=== PATIENT | female | born 1955 | race Caucasian/White ===

== ENCOUNTER 2017-01-15 17:20 | Emergency (ER) | payer BC ==
[2017-01-15 17:57] VITALS: BP 134/88
--- NOTE | 2017-01-15 19:30 | RAD ---
INDICATION: "Twisting" injury 11 days earlier COMPARISON: None. TECHNIQUE: 2 views of the right foot and 3 views of the right ankle were obtained. FINDINGS: There is a minimally displaced fracture through the distal right fibular metaphysis. The ankle mortise exhibits a small amount of widening at the fibular talar joint. The remaining visualized bones are well-corticated and appropriately aligned. IMPRESSION: MINIMALLY DISPLACED FRACTURE THROUGH THE DISTAL RIGHT FIBULA WITH A SMALL DEGREE OF WIDENING OF THE LATERAL ANKLE MORTISE.
--- NOTE | 2017-01-15 20:14 | UC ---
Lower Extremity/Ankle HPI - HPI Summary HPI Summary: ELEVEN DAYS AGO FELL ON KITCHEN FLOOR, PAIN IN ANKLE, NOT HEALING SINCE FALL - History of Current Complaint Chief Complaint: UCLowerExtremity Stated Complaint: ANKLE INJURY Time Seen by Provider: 01/15/17 17:55 Hx Obtained From: Patient Onset/Duration: Sudden Onset, Lasting Weeks, Still Present Severity Initially: Moderate Severity Currently: Moderate Aggravating Factor(s): Standing, Ambulation Alleviating Factor(s): Rest, Elevation, Ice Able to Bear Weight: Yes - WITH PAIN - Risk Factors Gout Risk Factors: Negative DVT Risk Factors: Negative Septic Arthritis Risk Factor: Negative - Allergies/Home Medications Allergies/Adverse Reactions: Allergies Allergy/AdvReac Type Severity Reaction Status Date / Time No Known Allergies Allergy Verified 01/15/17 17:57 Home Medications: Home Medications NK [No Home Medications Reported] 01/15/17 [History Confirmed 01/15/17] PMH/Surg Hx/FS Hx/Imm Hx Previously Healthy: Yes Endocrine History Of: Denies: Diabetes, Thyroid Disease Cardiovascular History Of: Denies: Cardiac Disorders, Hypertension Respiratory History Of: Denies: COPD, Asthma GI/ History Of: Denies: Ulcer - Surgical History Surgical History: None - Family History Known Family History: Negative: Other - NO JOINT LAXITY - Social History Alcohol Use: Occasionally Substance Use Type: None Smoking Status (MU): Former Smoker Review of Systems Constitutional: Negative Skin: Negative Eyes: Negative ENT: Negative Respiratory: Negative Cardiovascular: Negative Gastrointestinal: Negative Genitourinary: Negative Motor: Negative Neurovascular: Negative Musculoskeletal: Arthralgia, Myalgia Neurological: Negative Psychological: Negative All Other Systems Reviewed And Are Negative: Yes Physical Exam Triage Information Reviewed: Yes Appearance: Well-Appearing, No Pain Distress, Well-Nourished Vital Signs: Initial Vital Signs Temp 97.8 F 01/15/17 17:52 Pulse 89 01/15/17 17:52 Resp 18 01/15/17 17:52 BP 134/88 01/15/17 17:52 Pulse Ox 97 01/15/17 17:52 Vital Signs Reviewed: Yes Eye Exam: Normal ENT Exam: Normal ENT: Positive: Normal ENT inspection, Hearing grossly normal, Pharynx normal, TMs normal Dental Exam: Normal Neck exam: Normal Neck: Positive: Supple, Nontender, No Lymphadenopathy Respiratory Exam: Normal Respiratory: Positive: Chest non-tender, Lungs clear, Normal breath sounds, No respiratory distress, No accessory muscle use Cardiovascular Exam: Normal Cardiovascular: Positive: RRR, No Murmur, Pulses Normal Abdominal Exam: Normal Abdomen Description: Positive: Nontender, No Organomegaly Musculoskeletal: Positive: Strength Limited @ - RIGHT ANKLE, ROM Limited @ - RIGHT ANKLE, Edema @ - LATERAL RIGHT ANKLE Neurological Exam: Normal Psychological Exam: Normal Psychological: Positive: Normal Response To Family Skin Exam: Normal Lower Extremity Course/Dx - Differential Dx/Diagnosis Differential Diagnosis/HQI/PQRI: Fracture (Closed), Sprain, Strain Provider Diagnoses: CLOSED FRACTURE OF RIGHT FIBULA Discharge - Discharge Plan Condition: Stable Disposition: HOME Patient Education Materials: Ankle Fracture (ED), Crutch Instructions (ED) Forms: *Work Release Referrals: Yao Bautista MD [Primary Care Provider] - Mike Stovall MD [Medical Doctor] -
== END 2017-01-15 20:12 | disposition home or self-care (01) ==
LOC: UCEAST 17:20
DX: S82.831A Other fracture of upper and lower end of right fibula, initial encounter for closed fracture (principal); W01.0XXA Fall on same level from slipping, tripping and stumbling without subsequent striking against object, initial encounter; Y93.9 Activity, unspecified; Y99.9 Unspecified external cause status
CPT/HCPCS: 99202; G0463

== ENCOUNTER → 2017-09-20 07:14 | Emergency (ER) | payer BC ==
[2017-09-20 07:28] VITALS: BP 115/77
--- NOTE | 2017-09-20 07:49 | UC ---
Denisse Castro Alfonso, scribed for Leola Daniel MD on 09/20/17 at 0739 . General HPI - HPI Summary HPI Summary: This patient is a 62 year old F presenting to [facility] with a chief complaint of cold symptoms since 6-7 days ago. Patient reports SOB, but denies cough. no sputum mild sinus congestion, No chest pain. Reports LLQ pain for same duration. The patient rates the pain 7/10 in severity. Symptoms alleviated by nothing., + loss of appetite, feeling dehydration, and tired. Patient denies N/ V/D, fever, chills, back pain, dysuria, hematuria, vaginal discharge, and vaginal pruritus. Her last real BM was several or 6 days ago." but denies feeling constipated. "nothing in to come out. " She did not travel for the holidays. 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 She denies sick contacts. She denies being hurt or treated inappropriately. Pt went to work [employer] yesterday but was sent home. She was on xarelto for a LE DVT that developed while in [place]. Pt used for 6 month and told to stop. No other h/o clots. Patients medication reviewed this vis - History of Current Complaint Chief Complaint: UCAbdominalPain Stated Complaint: CHEST CONGESTION Time Seen by Provider: 09/20/17 07:33 Hx Obtained From: Patient Onset/Duration: Gradual Onset, Lasting Days - 6-7, Still Present Timing: Constant Pain Intensity: 7 - /10 Alleviating: nothing Associated Signs & Symptoms: Positive: Other - SOB, sinus congestion, a little bit of cough, loss of appetite, dehydration, and LLQ abdominal pain. Patient denies N/V/D, fever, chills, back pain, dysuria, hematuria, vaginal discharge, and vaginal pruritus. - Allergy/Home Medications Allergies/Adverse Reactions: Allergies Allergy/AdvReac Type Severity Reaction Status Date / Time No Known Allergies Allergy Verified 01/15/17 17:57 PMH/Surg Hx/FS Hx/Imm Hx Previously Healthy: No Cardiovascular History: Deep Vein Thrombosis - Surgical History Surgical History: Yes Surgery Procedure, Year, and Place: Tonsills (5 years old) - Family History Known Family History: Negative: Other - NO JOINT LAXITY - Social History Occupation: Employed Full-time Lives: With Family Alcohol Use: Weekly Substance Use Type: None Smoking Status (MU): Former Smoker Review of Systems Constitutional: Other - Dehyration; Negative Fever, Chills ENT: Sinus Congestion Respiratory: Shortness Of Breath Cardiovascular: Negative Gastrointestinal: Abdominal Pain, Other - Negative N/V/D Genitourinary: Negative, Other - Negative dysuria, hematuria, vaginal discharge , and vaginal pruritus Musculoskeletal: Negative Neurological: Negative All Other Systems Reviewed And Are Negative: Yes Physical Exam Triage Information Reviewed: Yes Appearance: Well-Nourished, Pain Distress, Other: - Pt quiet pallor holding LLQ with ambulation no resp distress Vital Signs: Initial Vital Signs Temp 97.5 F 09/20/17 07:21 Pulse 100 09/20/17 07:21 Resp 18 09/20/17 07:21 BP 115/77 09/20/17 07:21 Pulse Ox 98 09/20/17 07:21 Vital Signs Reviewed: Yes Eye Exam: Normal Eyes: Positive: Conjunctiva Clear ENT Exam: Normal ENT: Positive: Normal ENT inspection, Hearing grossly normal, Pharynx normal, Nasal congestion Dental Exam: Normal Neck exam: Normal Neck: Positive: Supple, Nontender, No Lymphadenopathy Respiratory Exam: Normal Respiratory: Positive: Chest non-tender, Lungs clear, Normal breath sounds, No respiratory distress, No accessory muscle use. Negative: Crackles, Rhonchi, Wheezing Cardiovascular Exam: Normal Cardiovascular: Positive: RRR, No Murmur, Pulses Normal, Brisk Capillary Refill Abdominal Exam: Normal Abdomen Description: Positive: No Organomegaly, Soft, Bruit, CVA Tenderness (L) . Negative: Nontender - + mild TTP LLQ, CVA Tenderness (R) Bowel Sounds: Positive: Present Musculoskeletal Exam: Normal Neurological Exam: Normal Psychological Exam: Normal Skin Exam: Normal Course/Dx - Course Course Of Treatment: Pt with progressive LLQ and feeling SOB x 6 days. Pt tired appearing, pale. Pt with mild abd pain but no other focal findings. Pt with h/o DVT when immobilized not currently on xarelto,. d/w pt concerned for sense of SOB, had to leave work, little po - differential includes CHF, PE, diverticulitis, electolyte abd. recommend pt to ED for further eval. present and in agreement - will drive pt - Differential Dx - Multi-Symptom Provider Diagnoses: sob. LLQ pain Discharge - Discharge Plan Condition: Stable Disposition: OTHER Discharge Disposition Comment: [facility] Patient Education Materials: Abdominal Pain (ED), Dyspnea (ED) Referrals: Sammi Gaitan NP [Primary Care Provider] - Additional Instructions: The doctor that evaluated you today recommends you go to the emergency department today for further testing and evaluation. It is recommended you go directly there from the urgent care center. Do not eat or drink anything before you are further evaluated. If your symptoms change or worsen enroute, it is recommended you pulley maintainer and call 911 The documentation as recorded by the Denisse lloyd Alfonso accurately reflects the service I personally performed and the decisions made by me, Leola Daniel MD.
== END ==
LOC: UCEAST 07:14
DX: R10.32 Left lower quadrant pain (principal); Z87.891 Personal history of nicotine dependence
CPT/HCPCS: 99212; G0463

== ENCOUNTER 2017-09-20 08:13 | Observation (INO) | payer BC ==
[2017-09-20] MEDS ORDERED: NS 0.9% 1000 ML* 1,000 ML IV ONE (08:38)
[2017-09-20] MEDS ORDERED: Ketorolac INJ* 30 MG/ML 1 ML VIAL IV PUSH ONE (08:41)
[2017-09-20] MEDS ORDERED: LORazepam INJ* 2 MG/ML 1 ML VIAL IV PUSH ONE ×2 (08:42→10:10)
[2017-09-20 09:03] LABS: Hematocrit 43 % (35-47); Hemoglobin 14.5 g/dl (12.0-16.0); Mean Corpuscular HGB Conc 34 g/dl (31-36); Mean Corpuscular Hemoglobin 32 pg (27-31); Mean Corpuscular Volume 96 fL (80-97); Mean Platelet Volume 9 um3 (7.4-10.4); Red Blood Count 4.52 10^6/ul (4.0-5.4); Red Cell Distribution Width 14 % (10.5-15); White Blood Count 11.1 10^3/ul (3.5-10.8)
[2017-09-20 09:21] LABS: Albumin 3.9 g/dL (3.2-5.2); BUN/Creatinine Ratio 23.1 (8-20); Calcium 10.3 mg/dL (8.6-10.3); EGFR African American 118.4 (>60); EGFR Non-African American 92.1 (>60); Globulin 3.6 g/dL (2-4); Magnesium 1.9 mg/dL (1.9-2.7); Potassium 3.8 mmol/L (3.5-5.0); Total Bilirubin 1.1 mg/dL (0.2-1.0); Total Protein 7.5 g/dL (6.4-8.9)
[2017-09-20 09:30] LABS: Troponin I 0.04 ng/mL (<0.04)
[2017-09-20] MEDS ORDERED: Iohexol 350* (CONTRAST) 500 ML MDV IV ONE (09:32)
[2017-09-20 10:02] LABS: TSH (Thyroid Stimulating Horm) 2.41 mcIU/mL (0.34-5.60)
--- NOTE | 2017-09-20 10:21 | RAD ---
Indication: Pulmonary embolus. Contrast: Administered 62.3 ml of OMNIPAQUE 350 mg/ml CTA of the chest was performed after IV contrast administration. Coronal and sagittal reconstructed images were obtained. The pulmonary tree is well opacified. There is a large filling defect in the right main pulmonary artery extending into the lobar branches of the pulmonary artery including the right lower lobe and right upper lobe pulmonary arteries. This extends into the segmental arteries. Additional filling defects are noted in the main left pulmonary artery extending into the left upper lobe branches. There may be some minimal extension into the left lobar branches. The aorta demonstrates no aneurysmal dilatation or aortic dissection. Small pretracheal and AP window lymph nodes are noted. The largest pretracheal lymph node measures up to 8 mm. The heart demonstrates no pericardial effusion. Areas of airspace disease is noted in the periphery of the right upper lobe and right lower lobe. No pleural fluid is identified. The visualized abdominal organs are unremarkable. IMPRESSION: Large pulmonary embolus involving the right main pulmonary artery extending into the right upper lobe and right lower lobe branches and segmental arteries. Additional left pulmonary embolus is noted in the main pulmonary artery extending into the left lobar branch of the left pulmonary artery. There may be some minimal airspace disease in the periphery of the right upper lobe and right lower lobe. Findings called to Dr. Ashton at 10:18 AM.
[2017-09-20] MEDS ORDERED: Enoxaparin(*) 80 MG/0.8 ML SYR SUBCUT ONE (10:30)
--- NOTE | 2017-09-20 10:48 | ED ---
Sinan Castro Benjamin, scribed for Daisha Bowman MD on 09/20/17 at 0842 . Shortness of Breath - HPI Summary HPI Summary: 62yo female c/o SOB and decreased appetite for 6 days. Pt also reports LLQ pain , only when standing. Pt has hx of RLE DVT on January 2017, s/p RLE fx. Pt has been taking xeralto for a month. Pt is a former smoker. Pt is not on any other meds. - History of Current Complaint Chief Complaint: EDShortnessOfBreath Time Seen by Provider: 09/20/17 08:22 Hx Obtained From: Patient Onset/Duration: Gradual Onset, Lasting Days - 6 days, Still Present Timing: Constant - Allergy/Home Medications Allergies/Adverse Reactions: Allergies Allergy/AdvReac Type Severity Reaction Status Date / Time No Known Allergies Allergy Verified 01/15/17 17:57 PMH/Surg Hx/FS Hx/Imm Hx Endocrine/Hematology History: Denies: Hx Diabetes, Hx Thyroid Disease Cardiovascular History: Reports: Hx Deep Vein Thrombosis Denies: Hx Hypertension Respiratory History: Denies: Hx Asthma, Hx Chronic Obstructive Pulmonary Disease (COPD) GI History: Denies: Hx Ulcer - Cancer History Hx Chemotherapy: No Hx Radiation Therapy: No - Surgical History Surgery Procedure, Year, and Place: Tonsills (5 years old) Infectious Disease History: No Infectious Disease History: Denies: Hx Hepatitis, Hx Human Immunodeficiency Virus (HIV), History Other Infectious Disease, Traveled Outside the [place] in Last 30 Days - Family History Known Family History: Negative: Other - NO JOINT LAXITY - Social History Lives: With Family Alcohol Use: Daily Alcohol Amount: 1-2 a day Substance Use Type: Reports: None Smoking Status (MU): Former Smoker Review of Systems Constitutional: Negative Eyes: Negative ENT: Negative Cardiovascular: Negative Negative: Chest Pain Positive: Shortness Of Breath Positive: Abdominal Pain - LLQ, Other - decreased appetite. Genitourinary: Negative Positive: no symptoms reported Musculoskeletal: Negative Skin: Negative Neurological: Negative Positive: Anxious All Other Systems Reviewed And Are Negative: Yes Physical Exam - Summary Physical Exam Summary: VITAL SIGNS: Reviewed. GENERAL: Patient is a well-developed and nourished FEMALE who is lying comfortable in the stretcher. Patient is not in any acute respiratory distress. HEAD AND FACE: No signs of trauma. No ecchymosis, hematomas or skull depressions. No sinus tenderness. EYES: PERRLA, EOMI x 2, No injected conjunctiva, no nystagmus. EARS: Hearing grossly intact. Ear canals and tympanic membranes are within normal limits. MOUTH: Oropharynx within normal limits. NECK: Supple, trachea is midline, no adenopathy, no JVD, no carotid bruit, no c- spine tenderness, neck with full ROM. CHEST: Symmetric, no tenderness at palpation LUNGS: Clear to auscultation bilaterally. No wheezing or crackles. CVS: Tachycardic rate and rhythm, S1 and S2 present, no murmurs or gallops appreciated. ABDOMEN: Soft, non-tender. No signs of distention. No rebound no guarding, and no masses palpated. Bowel sounds are normal. EXTREMITIES: FROM in all major joints, no edema, no cyanosis or clubbing. NEURO: Alert and oriented x 3. No acute neurological deficits. Speech is normal and follows commands. SKIN: Dry and warm Pt is anxious. Triage Information Reviewed: Yes Vital Signs On Initial Exam: Initial Vitals Temp Pulse Resp BP Pulse Ox 97.3 F 106 18 120/76 98 09/20/17 08:15 09/20/17 08:15 09/20/17 08:15 09/20/17 08:15 09/20/17 08:15 Vital Signs Reviewed: Yes - [place] Coma Scale Coma Scale Total: 15 Diagnostics - Vital Signs Vital Signs Temp Pulse Resp BP Pulse Ox 09/20/17 08:30 103 111/84 97 09/20/17 08:24 109 96 09/20/17 08:22 111/84 09/20/17 08:15 97.3 F 106 18 120/76 98 - Laboratory Result Diagrams: 09/20/17 08:50 09/20/17 08:50 Lab Statement: Any lab studies that have been ordered have been reviewed, and results considered in the medical decision making process. - CT CTA Chest CT Interpretation: Positive (See Comments) - IMPRESSION: Large pulmonary embolus involving the right main pulmonary artery extending into the right upper lobe and right lower lobe branches and segmental arteries. Additional left pulmonary embolus is noted in the main pulmonary artery extending into the left lobar branch of the left pulmonary artery. There may be some minimal airspace disease in the periphery of the right upper lobe and right lower lobe. CT Interpretation Completed By: Radiologist - ED physician has reviewed this radiology report and agrees. - EKG 0906. Cardiac Rate: NL EKG Rhythm: Sinus Rhythm - 99bpm EKG Interpretation: Normal axis, normal interval, no ischemic changes. Re-Evaluation - Re-Evaluation First Eval Re-Evaluation Time: 10:27 Comment: Informed pt about the CTA result. Pt will be admitted to [facility] Course/Dx - Course Course Of Treatment: 62yo female c/o SOB and decreased appetite for 6 days. Pt also reports LLQ pain, only when standing. Pt has hx of RLE DVT on January 2017, s /p RLE fx. Pt has been taking xeralto for a month. Pt is a former smoker. Pt is not on any other meds. Pt is hemodynamically stable. Lovenox was administered and pt will be admitted. Spoke to to Dr. Vo (Hospitalist) at 1030 hour, regarding pt's CTA result indicating PE. Pt will be admitted. - Diagnoses Provider Diagnoses: Pulmonary embolism Discharge - Discharge Plan Condition: Good Disposition: [facility]MITTED TO [facility] Additional Instructions: RETURN TO EMERGENCY DEPARTMENT FOR ANY NEW OR WORSENING SYMPTOMS The documentation as recorded by the Sinan lloyd Benjamin accurately reflects the service I personally performed and the decisions made by , Daisha Bowman MD.
--- NOTE | 2017-09-20 12:36 | RAD ---
INDICATION: Large pulmonary embolus, history of DVT. COMPARISON: Correlation is made with a prior right lower extremity venous duplex from July 11, 2017. TECHNIQUE: Multiple real-time, color flow and Doppler tracings of both lower extremities were obtained. FINDINGS: The common femoral, femoral, profunda femoral and popliteal veins all demonstrate normal compressibility, augmentation with compression and phasic response with respiration. The posterior tibial and peroneal veins demonstrate normal compressibility and augmentation with compression. IMPRESSION: NO EVIDENCE FOR DEEP VENOUS THROMBOSIS.
--- NOTE | 2017-09-20 15:25 | ECHO ---
Patient: CARSON WIGGINS [facility] Rec#: [id number] : 1955 Date: 09/20/2017 Age: 62y Height: 165.1 cm / 65.0 in Weight: 66.7 kg / 147.0 lbs Sex: F BSA: 1.7 Room#: [facility] Admit Date#: 09/20/2017 Type: Inpatient Referring: Blaine Vo Reading: Heide Roper MD Shore Worker: Isadora Jackson RN RDCS CC: Vaishnavi ALVARENGA,Sammi Transthoracic Echocardiogram Indication: Pulmonary embolism BP: 106/69 HR: 93 Rhythm: NSR Findings History: DVT after RLE fracture 01/2017, former smoker Technical Comments: The study quality is fair. The study is technically limited due to patient body habitus. The study is technically limited due to the patient's smoking history. Completed at 1520. Left Ventricle: The left ventricular chamber size is normal. There is increased basal septal hypertrophy noted without evidence of an increased gradient across the left ventricular outflow tract. Global left ventricular wall motion and contractility are within normal limits. There is normal left ventricular systolic function. The estimated ejection fraction is 55-60%. Abnormal left ventricular diastolic filling is observed, consistent with impaired relaxation. Left Atrium: The left atrial chamber size is normal. Right Ventricle: The right ventricle wall thickness is mildly increased. The right ventricular cavity size is normal. The right ventricular global systolic function is normal. Right Atrium: The right atrial cavity size is normal. Aortic Valve: The aortic valve leaflets are mildly thickened. There is a trace of aortic regurgitation. There is no evidence of aortic stenosis. Mitral Valve: The mitral valve leaflets are mildly thickened. There is a trace of mitral regurgitation. There is no evidence of mitral stenosis. Tricuspid Valve: The tricuspid valve leaflets are normal. There is trace tricuspid regurgitation. Unable to estimate the right ventricular systolic pressure. Pulmonic Valve: The pulmonic valve appears normal. There is a trace pulmonic regurgitation. There is no pulmonic stenosis. Pericardium: There is no significant pericardial effusion. A pericardial fat pad is visualized. Aorta: There is no dilatation of the ascending aorta. There is no dilatation of the aortic arch. There is no dilation of the aortic root. Pulmonary Artery: The main pulmonary artery is not well visualized. Venous: The inferior vena cava appears normal in size. There is less than 50% respiratory change in the inferior vena cava dimension. Conclusions The study quality is fair. The left ventricular chamber size is normal. Global left ventricular wall motion and contractility are within normal limits. The estimated ejection fraction is 55-60%. The right ventricle wall thickness is mildly increased. The right ventricular cavity size is normal and systolic function is normal. All valves show good function. There is a trace of aortic regurgitation. There is a trace of mitral regurgitation. There is trace tricuspid regurgitation. No prior echo to compare. Measurements Name Value Normal Range RVDdMajor (2D) 3.2 cm (2.2 - 4.4) RVAW (2D) 0.6 cm (0.2 - 0.5) RAd ISD 4CH 3.8 cm (3.4 - 4.9) RA (A4C)W 3.3 cm (2.9 - 4.6) IVSd (2D) 1 cm (0.6 - 1) LVPWd (2D) 1 cm (0.6 - 1) LVIDd (2D) 3.6 cm (3.6 - 5.4) LVIDs (2D) 2.7 cm - LV FS (2D) 26 % (25 - 45) Aortic Annulus 2 cm (1.4 - 2.6) Ao root diameter (2D) 3.2 cm (2.1 - 3.5) Ascending Ao 3.3 cm (2.1 - 3.4) Aortic arch 2.3 cm (1.8 - 3.4) LA dimension (AP) 2D 2.7 cm (2.3 - 3.8) LAd ISD 4CH 4.2 cm (2.9 - 5.3) LA ISD 4CH W 3.6 cm (2.5 - 4.5) Name Value Normal Range LA ESV SP 4CH (A/L) 41 ml - LA ESV SP 2CH (A/L) 55 ml - LA ESV BP (A/L) 50 ml - LA ESV BP (A/L) index 28.8 ml/m2 - LA ESV SP 4CH (MOD) 36 ml - LA ESV SP 2CH (MOD) 53 ml - Name Value Normal Range MV E-wave Vmax 0.61 m/sec - MV deceleration time 238 msec - MV A-wave Vmax 0.87 m/sec - MV E:A ratio 0.7 ratio - LV septal e' Vmax 0.07 m/sec - LV lateral e' Vmax 0.1 m/sec - LV E:e' septal ratio 8.7 ratio - LV E:e' lateral ratio 6.1 ratio - Name Value Normal Range AV Vmax 1.5 m/sec - AV VTI 26.7 cm - AV peak gradient 9.1 mmHg - AV mean gradient 4.6 mmHg - LVOT Vmax 1.1 m/sec - LVOT VTI 23.9 cm - LVOT peak gradient 5.1 mmHg - LVOT mean gradient 3.1 mmHg - FAITH Vmax 0.91 m/sec - Name Value Normal Range IVC diameter 1.2 cm - Name Value Normal Range PV Vmax 0.65 m/sec -
[2017-09-20] MEDS ORDERED: Polyethylene Glycol 3350* 17 GM PACKET PO PRN (16:44)
[2017-09-20] MEDS ORDERED: Docusate CAP* 100 MG PO PRN (16:46)
[2017-09-20] MEDS ORDERED: Acetaminophen TAB* 325 MG PO PRN (18:37)
[2017-09-20] MEDS: Rivaroxaban TAB(*) 15 MG PO SCH (21:47)
--- NOTE | 2017-09-20 23:31 | HP ---
HISTORY AND PHYSICAL: DATE OF ADMISSION: 09/20/17 ADMITTING PROVIDER: Blaine Vo MD PRIMARY CARE PROVIDER: WILBER Sparks, Nell. CHIEF COMPLAINT: Shortness of breath; pinching sensation in chest and then left groin. HISTORY OF PRESENT ILLNESS: Talia Chun is a 62-year-old female, PMH as below, who 7 months prior had a right DVT provoked by a right fibula fracture sustained after loss of consciousness episode/fall and treated with what seems like 1 month of Xarelto per the patient's best recollection. The patient's chief complaint is sensation of pinching or stabbing in her chest that began shortly prior to Thanksgiving, approximately 5 to 6 days prior. She had intermittent shortness of breath since then, the pinching sensation in her chest resolved at rest and she developed a pull sensation in her left groin. 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 The patient has not been eating for the last 6 days as the sensation of the idea of eating food makes her somewhat nauseous. She had some dry heaves with no other emesis. She reports that she has had multiple episodes of loss of consciousness throughout her life. She has discussed these with the physicians, though not at the time of the incidents and does not seem to have sought emergency room evaluation during these. She does have pretty significant alcohol history use with 2 to 3 drinks daily for much of her adult life, though she did quit for about 15 years between 1992 and approximately 2006. Her last drink was within the last week, but she states she has decided to quit since also is feeling relatively poorly. Upon presentation to the emergency room, she was discovered to have an elevated troponin of 0.04. BNP was within normal limits at 62. Given her DVT history, shortness of breath and tachycardia to 106, she had a CT angio of the chest, which was significant for a large pulmonary embolism in the right main pulmonary artery extending into the right upper lobe and right lower lobe branches and segmental arteries. Additionally, she had a left pulmonary embolus in the main pulmonary artery extending into the left lobar branch of the left pulmonary artery. There may be some minimal airspace disease in the periphery of the right upper lobe and right lower lobe. Hospitalist service was consulted for admission for pulmonary embolism. She probably has soft blood pressures at baseline, initially was 120/76, dipped down to the mid 90s/ 60s. T-max was 99.4. Initial EKG did not show evidence of right heart strain. Upon admission, duplex Dopplers of the bilateral lower extremities were obtained, which did not show DVT. An echo was performed which did not show right heart strain. She was given a 1 mg/kg Lovenox in the emergency room for anticoagulation. The patient of note does not take any medications at home and reports no recent bowel movements in the last, approximately a week. 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 Denies any other episodes of seizure-like activity. Of note, she also drives almost every weekend to , [place], 2-1/2 to [address] to take care of her 93-year-old father. PAST MEDICAL HISTORY: Significant alcohol use, former smoker, right distal fibula fracture complicated by right DVT in January 2017, status post for approximately 1 month; intermittent loss of consciousness episodes during her life has not been fully evaluated. HOME MEDICATIONS: None. ALLERGIES: No known drug allergies. FAMILY HISTORY: Noncontributory. SOCIAL HISTORY: Alcohol use 2 to 3 drinks daily, last drink 6 days prior to admission. Her medical surrogate is Michael Chun, her . She is a full code. REVIEW OF SYSTEMS: Complete 14-point review of systems is negative except as per HPI. PHYSICAL EXAMINATION GENERAL: No acute distress, lying in [facility]. HEENT: Normocephalic, atraumatic. Pupils are equally round and reactive to light. Extraocular motions intact. NECK: Supple. No cervical lymphadenopathy. RESPIRATORY: Clear to auscultation bilaterally with no wheezing, rales or rhonchi. CARDIOVASCULAR: Regular rate and rhythm. Slight tachycardia. No murmurs, rubs or gallops. ABDOMEN: Soft, nontender, nondistended. No peripheral edema. NEURO: Cranial nerves II through XII intact. Moving all extremities. Sensation intact. 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 SKIN: No rashes, nodules or lesions. LABORATORY DATA: White count 11.1, hemoglobin 14.5, platelets 212,000, hematocrit 43. INR 1.1. Sodium 133, potassium 3.8, chloride 95, carbon dioxide 22, BUN 15, creatinine 0.65, glucose 99, magnesium 1.9, total bilirubin 1.10, AST 33, ALT 26, alk phos 90. Troponin 0.04. BNP 62. TSH 2.41. IMAGING: Chest CTA as per HPI. Venous Doppler duplex without evidence of DVT. Transthoracic echocardiogram with preserved ejection fraction of 55% to 60%. Abnormal left ventricular diastolic filling observed consistent with impaired relaxation. RV wall thickness mildly increased. Right ventricular cavity size is normal and systolic function is normal. Trace aortic regurg, mitral regurg, and tricuspid regurgitations. ASSESSMENT/PLAN: Talia Chun is a 62-year-old female with recent deep venous thrombosis that was provoked, significant alcohol use and also significant long car rides each week, presenting with 7 days of chest discomfort and shortness of breath, found to have large bilateral pulmonary embolism. Troponin is intermediately elevated at 0.04, we will repeat that now. BNP was negative. Echo did not show signs of right heart strain noted in EKG. The patient is status post 1 mg/kg Lovenox in the ED. The patient has large reservations about starting "rat poison" such as Coumadin and no reservations at all about restarting the Xarelto that she took for approximately 1 month, unclear the reason why only that duration, although she did get repeat duplex ultrasound on 07/11/17, which demonstrated no evidence of DVT at that time. The patient should have 3 months of anticoagulation at the very least, though it is unclear how reliable a historian she is or the degree to what she follows up with medical care. She could not recall the name of her primary care physician other than Sammi. We will continue to monitor on telemetry, continue the Xarelto with possible discharge on hospital day #2, if still hemodynamically stable and follow up with either Pulmonology or Hem/Onc for further outpatient monitoring of her blood clots. The patient was not deemed a candidate for TPA given her hemodynamic stability. Significant alcohol use history not associated with potentially correlated episodes of loss of consciousness. Question whether all these could be alcohol withdrawal seizures. Last drink was approximately 6 to 7 days ago outside of the window for any withdrawal, which she does also deny low threshold for benzodiazepine if any withdrawal symptoms occur. The patient reports poor p.o. intake. We will supplement her diet as needed. Start Zofran p.r.n. and a bowel regimen as she reports no bowel movement in approximately in 6 days. The patient is a full code. Medical surrogate is her , Michael. DVT prophylaxis. She is already on full therapeutic anticoagulation. [id number]/[facility] [place] #: [id number] MTDD
[2017-09-21] MEDS ORDERED: Benzonatate CAP* 100 MG PO PRN (01:46)
[2017-09-21 07:58] VITALS: BP 108/64
[2017-09-21 08:17] LABS: Hematocrit 38 % (35-47); Mean Corpuscular HGB Conc 35 g/dl (31-36); Mean Corpuscular Hemoglobin 33 pg (27-31); Mean Corpuscular Volume 94 fL (80-97); Mean Platelet Volume 9 um3 (7.4-10.4); Red Blood Count 3.99 10^6/ul (4.0-5.4); Red Cell Distribution Width 13 % (10.5-15); White Blood Count 6.9 10^3/ul (3.5-10.8)
[2017-09-21] MEDS: Rivaroxaban TAB(*) 15 MG PO SCH (09:52)
--- NOTE | 2017-09-21 21:01 | DS ---
CC: Sammi Riggins NP * DISCHARGE SUMMARY: DATE OF ADMISSION: 09/20/17 DATE OF DISCHARGE: 09/21/17 HISTORY: This 62-year-old woman presented with shortness of breath, some discomfort in her chest and her left groin. The patient states she has had these symptoms for about 5 or 6 days. She mainly noticed dyspnea on exertion. She also had some left groin pain, it is not clear of what the etiology of this is, but it was less and not really disabling. CTA showed bilateral pulmonary emboli, the larger being on the right side of the chest. Echocardiogram did not show right ventricular strain. She received a dose of rivaroxaban 15 mg in the evening on 09/20/17 and will receive another dose this morning the day of discharge. She also got a dose of enoxaparin subcu. Of note, she had the DVT right leg related to right fibula fracture about 7 months ago. She was in an orthopedic boot/brace. She states she took rivaroxaban for about a month. The patient did well in the hospital. She still had some dyspnea on exertion. No real tenderness in the left groin. Physical exam was essentially unremarkable. She was given prescriptions for rivaroxaban to last for 6 months. FINAL DIAGNOSES: 1. Pulmonary embolism. 2. History of tobacco use. DISCHARGE MEDICATIONS: Rivaroxaban 15 mg b.i.d. for 20 days, then 20 mg daily. [id number]/[facility] #: [id number] MTDD
== END 2017-09-21 10:20 | disposition home or self-care (01) ==
LOC: ED 08:13 → MED 10:56
PROVIDERS: ADMIT Internal Medicine; ATTEND Internal Medicine
DX: I26.99 Other pulmonary embolism without acute cor pulmonale (principal); R07.9 Chest pain, unspecified; R10.9 Unspecified abdominal pain; Z86.718 Personal history of other venous thrombosis and embolism; R06.02 Shortness of breath; Z87.891 Personal history of nicotine dependence; R10.32 Left lower quadrant pain; Z79.01 Long term (current) use of anticoagulants; R74.8 Abnormal levels of other serum enzymes
CPT/HCPCS: 36415; 71275; 80053; 82550; 83735; 83880; 84443; 84484; 85025; 85610; 85730; 93005; 93306; 93970; 96366; 96372; 96374; 96375; 99284; A9270-GY; G0378; J1650; J1885; J2060; Q9967